=== PATIENT | male | born 1990 | race American Indian/Alaskan Native ===

== ENCOUNTER 2017-06-27 07:03 | Emergency (ER) | payer OTHER ==
[2017-06-27 07:23] VITALS: BP 115/67
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
[2017-06-27] MEDS ORDERED: NORCO 5/325 PO ONE (08:42)
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
== END 2017-06-27 09:09 | disposition home or self-care (01) ==
LOC: ED 07:03
DX: S80.02XA Contusion of left knee, initial encounter (principal); V49.49XA Driver injured in collision with other motor vehicles in traffic accident, initial encounter; Y93.89 Activity, other specified; Y92.89 Other specified places as the place of occurrence of the external cause; Y99.8 Other external cause status; F17.200 Nicotine dependence, unspecified, uncomplicated